=== PATIENT | female | born 1960 | race Caucasian/White ===

== ENCOUNTER → 2016-05-09 | Outpatient (CLI) | payer BC ==
[~2016-05-09] MED LIST: ASPIR-LOW81 MG PO; CLARITIN DPS10 MG PO; ELAVIL-DPS50 MG PO; GLUCOPHAGE1000 MG PO; LANTUS100 UNITS/ SQ; LOPRESSOR DPS100 MG PO; NEURONTIN DPS300 MG PO; NOVOLOG100 UNIT/2 SQ; PLAQUENIL DPS200 MG PO; ZANAFLEX4 MG PO; ZESTRIL DPS20 MG PO; ZOCOR DPS20 MG PO
== END | disposition home or self-care (01) ==
LOC: RAD.S 08:51
DX: Z12.31 Encounter for screening mammogram for malignant neoplasm of breast (principal)